=== PATIENT | female | born 1950 | race Caucasian/White ===

== ENCOUNTER → 2018-10-19 09:18 | Outpatient (CLI) | payer MEDICARE, SELFPAY ==
--- NOTE | 2018-10-19 09:36 | RAD_ITS ---
STUDY: X-RAY - PARANASAL SINUSES REASON FOR EXAM: Female, 68 years old. Dizziness, headaches TECHNIQUE: 3 view(s) of the paranasal sinuses were obtained. COMPARISON: None. FINDINGS: Near complete opacification of the right maxillary sinus, other paranasal sinuses unremarkable. Normal visualized facial bones. The soft tissue structures are unremarkable. RAD/Sinuses min 3 Views IMPRESSION: Right maxillary sinusitis Electronically Signed: Foreign Aguilar MD at 10:15 EDT , Service support ,
== END ==
PROVIDERS: Referring Provider Family Medicine; Visit Provider Family Medicine
DX: J32.9 Chronic sinusitis, unspecified (principal)
CPT/HCPCS: 70220